=== PATIENT | female | born 2000 | race Asian ===

== ENCOUNTER 2024-11-28 14:26 | Inpatient (IN) | payer OTHER, SELFPAY ==
[2024-11-28] VITALS (10 sets, daily range): BP systolic 100–127; BP diastolic 65–81; PULSE 84–111; RESP 16–20; TEMP 36.8–37; O2SAT 95–99; BMI 31.6
--- NOTE | 2024-11-28 14:34 | ECG_ITS ---
Test Date: 2024-11-28 14:42:41 Measurements Intervals [place] Rate: 87 P: 0 NV: 0 QRS: 28 QRSD: 98 T: 47 QT: 351 QTc: 424 Interpretive Statements SINUS RHYTHM No previous ECG available for comparison Electronically Signed On 11-29-2024 06:38:05 CDT by Benjie King D.O
--- NOTE | 2024-11-28 14:50 | PC.NURSE ---
BUPROPION 150MG 90 TABLET BOTTLE. 87 TABS COUNTED. UNKNOWN AMOUNT TAKEN BECAUSE THE BOYFRIEND COMBINES HIS PILL BOTTLES WHEN NEW SCRIPT OBTAINED. BUSPIRONE 10MG 180 TABLET BOTTLE. 49 TABS COUNTED. UNKNOWN AMOUNT TAKEN DUE TO COMBINING PILL BOTTLES ESCITALOPRAM 20MG 90 TABLET BOTTLE. 111 TABS COUNTED BECAUSE BOYFRIEND COMBINES PILL BOTTLES WITH NEW SCRIPTS SO UNKNOWN AMOUNT WAS TAKEN SPOKE WITH POISON CONTROL WHO REPORTS THAT WITH THESE MEDS WE NEED SCREENING LABS +EKG DUE TO RISK OF PROLONGED QT AND WIDENED QRS. RISK OF DELAYED SEIZURES IS SIGNIFICANT SO THEY RECOMMENDED ADMISSION FOR CLOSE MONITORING. ALSO CAN HAVE INTENSIVE CARE UNIT NURSE DEPRESSION AND NAUSEA WITH VOMITING.
--- NOTE | 2024-11-28 14:51 | ED.GENADULT ---
HPI - General Adult General Chief complaint: Overdose Stated complaint: overdose History of Present Illness HPI narrative: 24-year-old female presenting to the emergency department for evaluation after an intentional overdose. Patient was not attempting to harm herself but states she had gotten into a verbal argument with her boyfriend became emotionally upset and just wanted to sleep. Patient states she was not open to sleep for over and patient continues to deny that this was an attempt for self-harm. Patient does have a history of self-harm Related Data Home Medications ?Medication ?Instructions ?Recorded ?Confirmed ?Last Taken ?Type dapagliflozin propanediol 10 mg 10 mg PO DAILY 10/04/24 10/20/24 Unknown History tablet (Farxiga) lurasidone 120 mg tablet (Latuda) 120 mg PO DAILY 10/04/24 10/20/24 Unknown History norethindrone (contraceptive) 0.35 0.35 mg PO DAILY 10/04/24 10/20/24 Unknown History mg tablet (Emzahh) venlafaxine 150 mg 150 mg PO DAILY 10/04/24 10/20/24 Unknown History capsule,extended release 24 hr (Effexor XR) Allergies Allergy/AdvReac Type Severity Reaction Status Date / Time risperidone (From Risperdal) Allergy Mild galactorrhe Verified 10/20/24 11:32 a Review of Systems Review of Systems: All systems reviewed & are unremarkable except as noted in HPI and below PMFSH Family History Family History Mother Diabetes mellitus Father Diabetes mellitus Sibling Diabetes mellitus Anxiety Depression Grandparent Diabetes mellitus Sibling Depression Anxiety Social History Social History Smoking status: Current every day smoker Alcohol intake: never Alcohol use details: 1-4/wk Substance use: never Substance use type: does not use Do You Feel Safe in your Home?: No Lack of Transportation: No Lack of Food: Never True Current Housing: I Have Housing Concerned About Future Housing: No Difficulty Paying Gas/Electric Bills: No Difficulty Paying for Meds: No Currently Unemployed: No Education: Decline to Answer Difficulty w/ Childcare or Family Care: No Spiritual care concerns: No Agree to blood products: Yes Exam Narrative: APPEARANCE: Well appearing, no pain, no distress, well-nourished. HEAD: normocephalic, atraumatic. EYES: PERRLA/EOMI, conjunctivae clear. NOSE: Normal no drainage EARS:TMS clear with good light reflex. THROAT: Pharynx clear, no exudate. NECK: Supple. No adenopathy, no masses. RESPIRATORY: Airway patent, respirations nonlabored. Clear to auscultation bilaterally, no rales, rhonchi, wheezing. CARDIOVASCULAR: Regular rate and rhythm without murmurs rubs or gallops. ABDOMINAL: Soft, nontender, nondistended, normal bowel sounds MUSCULOSKELETAL: Moves all extremities. Strength/ROM intact, No edema, No calf tenderness. NEURO: Alert. Cranial nerves II through XII intact. Good gait. Good coordination SKIN: Warm, dry. Normal Color PSYCHIATRIC: Flat affect Course Vital Signs Vital signs: Vital Signs Temperature 98.6 F 11/28/24 14:28 Pulse Rate 87 11/28/24 14:28 Respiratory Rate 16 11/28/24 14:28 Blood Pressure 118/80 11/28/24 14:28 Pulse Oximetry 97 11/28/24 14:28 Oxygen Delivery Room Air 11/28/24 14:28 Temperature 98.6 F 11/28/24 14:28 Pulse Rate 84 11/28/24 16:27 Respiratory Rate 16 11/28/24 16:27 Blood Pressure 119/81 11/28/24 16:27 Pulse Oximetry 98 11/28/24 16:27 Oxygen Delivery Room Air 11/28/24 14:50 Medical Decision Making [facility] Narrative Medical decision making narrative: 24 old female present to the emergency department for evaluation for intentional overdose. Patient states the intent was to sleep not suicide. Patient does have a history of self-harm. Patient is afebrile with no leukocytosis hemoglobin of 13.9. Patient has a INR of 1.1. No acute abnormalities on the CMP UA was negative for infection. Patient had negative since lytes heated med if an and alcohol. Patient did test positive for cannabinoids. Patient was negative for COVID. EKG showed normal sinus rhythm case was discussed with the training and development head and training and development head was not consulted. Patient will be admitted to the ICU as an IMU overflow. Patient was updated on results of the workup and need for admission. Patient overdosed on bupropion and poison Control recommended admission for 24 hours for concern for seizures. Differential Diagnosis Differential Diagnosis: Intentional overdose, suicidal ideation, self-harm, seizure, kidney injury, liver injury Vital Signs Vital Signs: Vital Signs Temperature 98.6 F 11/28/24 14:28 Pulse Rate 87 11/28/24 14:28 Respiratory Rate 16 11/28/24 14:28 Blood Pressure 118/80 11/28/24 14:28 Pulse Oximetry 97 11/28/24 14:28 Oxygen Delivery Room Air 11/28/24 14:28 Temperature 98.6 F 11/28/24 14:28 Pulse Rate 84 11/28/24 16:27 Respiratory Rate 16 11/28/24 16:27 Blood Pressure 119/81 11/28/24 16:27 Pulse Oximetry 98 11/28/24 16:27 Oxygen Delivery Room Air 11/28/24 14:50 Lab Data Lab results reviewed: Yes I reviewed the patient's lab results. 11/28/24 15:30 11/28/24 15:30 Labs: Lab Results 11/28/24 11/28/24 Range/Units 15:30 15:48 WBC 6.3 (4.5-10.0) K/mm3 RBC 4.82 (4.2-5.4) M/mm3 Hgb 13.9 (12.0-15.0) g/dL Hct 42.8 (37.0-47.0) % MCV 88.8 (80-100) fl MCH 28.8 (26-34) pg MCHC 32.5 (32-36) g/dl RDW 12.6 (11.5-14.5) % Plt Count 315 (150-375) k/mm3 MPV 8.9 (7.4-10.4) fl Immature Gran % (Auto) 0.3 (0-0.5) % Neut % (Auto) 62.5 (45.5-73.1) % Lymph % (Auto) 29.8 (18.3-44.2) % [place] % (Auto) 5.7 (2.6-8.5) % Eos % (Auto) 1.4 (0-4.4) % Baso % (Auto) 0.3 (0.2-1.2) % Lymph # (Auto) 1.89 (0.9-3.2) K/mm3 [place] # (Auto) 0.4 (0.1-0.6) K/mm3 Eos # (Auto) 0.1 (0-0.3) K/mm3 Baso # (Auto) 0.0 (0.0-0.1) K/mm3 Abs Immat Gran (auto) 0.02 (0.00-0.031) K/mm3 Absolute Neuts (auto) 4.0 (1.3-6.7) K/mm3 Absolute Nucleated RBC 0.000 (0.0-0.012) K/mm3 Nucleated RBC % 0.0 (0.0-0.2) % PT 14.0 (11.1-14.7) Seconds INR 1.1 APTT 31.7 (22.3-36.8) Seconds Sodium 138 (137-145) mmol/L Potassium 4.0 (3.4-5.0) mmol/L Chloride 102 (98-107) mmol/L Carbon Dioxide 23 (22-30) mmol/L Anion Gap 13 H (4-12) mmol/L BUN 9 (7-17) mg/dL Creatinine 0.68 L (0.7-1.0) mg/dL Estim Creat Clear Calc Not Reportable Estimated GFR > 60 (59 - ) Glucose 145 H (65-110) mg/dL Calcium 9.3 (8.4-10.2) mg/dL Total Bilirubin 0.3 (0.2-1.3) mg/dL AST 26 (14-36) U/L ALT 19 (6-35) U/L Alkaline Phosphatase 53 (38-126) U/L Total Protein 8.2 (6.3-8.2) g/dL Albumin 4.8 (3.5-5.1) g/dL TSH 1.410 (0.465-4.680) uIU/mL POC Urine HCG, Qual Negative (Negative) Salicylates < 1.0 L (2-20) mg/dL Acetaminophen < 10 L (10-30) ug/mL Ethyl Alcohol < 10 (<10) mg/dL SARS-CoV-2 RNA (RT-PCR) Negative (Negative) Discharge Plan Discharge Clinical Impression: Overdose Patient Disposition: Still a Patient Condition: Serious
[2024-11-28 15:36] LABS: Hematocrit 42.8 % (37.0-47.0); Hemoglobin 13.9 g/dL (12.0-15.0); Immature Granulocyte Percent A 0.3 % (0-0.5); Lymphocytes Absolute Auto 1.89 K/mm3 (0.9-3.2); Mean Corpuscular HGB Conc 32.5 g/dl (32-36); Mean Corpuscular Hemoglobin 28.8 pg (26-34); Mean Corpuscular Volume 88.8 fl (80-100); Nucleated Red Blood Cells Absolute Auto 0.000 K/mm3 (0.0-0.012); Nucleated Red Blood Cells Perc 0.0 % (0.0-0.2); Platelet Count Result 315 k/mm3 (150-375); Red Blood Count 4.82 M/mm3 (4.2-5.4); White Blood Count 6.3 K/mm3 (4.5-10.0)
[2024-11-28 15:46] LABS: INR 1.1; Prothrombin Time 14.0 Seconds (11.1-14.7)
[2024-11-28 15:47] LABS: Alanine Aminotransferase 19 U/L (6-35); Albumin Level 4.8 g/dL (3.5-5.1); Alkaline Phosphatase 53 U/L (38-126); Anion Gap 13 mmol/L (4-12); Aspartate Amino Transferase 26 U/L (14-36); Bilirubin,Total 0.3 mg/dL (0.2-1.3); Blood Urea Nitrogen 9 mg/dL (7-17); Calcium 9.3 mg/dL (8.4-10.2); Carbon Dioxide 23 mmol/L (22-30); Chloride 102 mmol/L (98-107); Estimated Glomerular Filt Rate > 60; Glucose 145 mg/dL (65-110); Partial Thromboplastin Time 31.7 Seconds (22.3-36.8); Potassium 4.0 mmol/L (3.4-5.0); Sodium 138 mmol/L (137-145); Total Protein 8.2 g/dL (6.3-8.2)
[2024-11-28 15:48] LABS: Acetaminophen < 10 ug/mL (10-30); Salicylate < 1.0 mg/dL (2-20)
--- NOTE | 2024-11-28 15:58 | P.HP_ITS ---
H&P: HPI History of Present Illness Date/Time: 11/28/24 15:58 Chief Complaint: Overdose Narrative: 24-year-old female presents the hospital with an overdose. Patient denies that this is a suicidal attempt. She states she was just trying to get some sleep. Patient states that she took Wellbutrin, buspirone and citalopram. She states that they were her boyfriend's medications. She does not know how many of each she took. Patient states that she told her boyfriend about taking the pills. she had call 911. Patient provides very little other information about the incident. Denies nausea vomiting shortness of breath. CBC and CMP are within normal limits glucose is 145, salicylates, acetaminophen, and ethanol level negative. EKG shows sinus rhythm with second-degree AV block Mobitz type 2. UA positive for cannabinoids. Patient will go to the ICU as IMU overflow for intentional overdose. Review of Systems Review of Systems: 12 systems were reviewed and are negativ e except for as per HPI. [facility] Family History Family History Mother Diabetes mellitus Father Diabetes mellitus Sibling Diabetes mellitus Anxiety Depression Grandparent Diabetes mellitus Sibling Depression Anxiety Social History Social History Years smoked: 4 Smoking status: Current every day smoker Tobacco type: e-cigarettes/vaping Additional smoking assessment comments: Patient reports previous short term cigarette use. Alcohol intake: never Alcohol use details: 1-4/wk Substance use: never Substance use type: does not use Do You Feel Safe in your Home?: No Lack of Transportation: No Lack of Food: Never True Current Housing: I Have Housing Concerned About Future Housing: No Difficulty Paying Gas/Electric Bills: No Difficulty Paying for Meds: No Currently Unemployed: No Education: Decline to Answer Difficulty w/ Childcare or Family Care: No Spiritual care concerns: No Agree to blood products: Yes Meds Home Medications and Allergies Home Medications ?Medication ?Instructions ?Recorded ?Confirmed ?Type blood-glucose sensor (Dexcom G7 #9 ea 10/04/24 5 Rx Sensor device) dapagliflozin propanediol 10 mg 10 mg PO DAILY 5 11/28/24 History tablet (Farxiga) dulaglutide 1.5 mg/0.5 mL 1.5 mg (0.5 mL) subcut WEEKL Y #6 mL 10/04/24 11/28/24 Rx subcutaneous pen injector (Trulicity) lurasidone 120 mg tablet (Latuda) 120 mg PO DAILY 11/2111/28/24 History metformin 750 mg tablet,extended 750 mg PO DAILY #180 tabs 10/04/24 11/28/24 Rx release 24 hr norethindrone (contraceptive) 0.35 0.35 mg PO DAILY 11/28/24 History mg tablet (Emzahh) venlafaxine 150 mg 150 mg PO DAILY 10/04/2404/23 History capsule,extended release 24 hr (Effexor XR) insulin glargine 100 unit/mL (3 40 unit (0.4 mL) subcu t QPM #36 mL 10/20/24 11/28/24 Rx mL) subcutaneous pen (Lantus Solostar U-100 Insulin) pen needle, diabetic 32 gauge x #400 ea 10/20/2411/28 Rx 5/32 (Eileen 2nd Gen Pen Needle) insulin aspart U-100 100 unit/mL 8 unit subcut TIDWMEA L 11/28/24 11/28/24 History (3 mL) subcutaneous pen (Novolog FlexPen U-100 Insulin aspart) Allergies Allergy/AdvReac Type Severity Reaction Status Date / Time risperidone (From Risperdal) Allergy Mild galactorrhe Verified 10/20/24 11:32 a Vital Signs Vital Signs - 24 hr 11/28/24 14:28 11/28/24 14:50 11/28/24 14:50 Temperature 98.6 F Pulse Rate 87 Respiratory Rate 16 16 Blood Pressure 118/80 Pulse Oximetry 97 99 Oxygen Delivery Room Air Room Air Exam Narrative: General: well appearing, appears stated age. HEENT: normocephalic, atraumatic. Mucous membranes moist. EOMI, PERRLA, bilateral sclera anicteric, no conjunctival injection. Neck supple without JVD, lymphadenopathy, or bruit. Respiratory: clear to ascultation bilaterally. No rales/rhonic/wheezes. Cardiovascular: Regular rate and rhythm, normal S1-S2 upon ascultation. No murmurs, rubs, or clicks. PMI is nondisplaced, capillary refill less than 3 second. Abdomen: Soft, round, no pulsatile masses, nondistended and nontender. No rebound, no guarding. No CVA tenderness, no hepatosplenomegaly. Bowel sounds present to all four quadrants. No high pitch or tinkling sounds, resonant to percussion. Extremities: No cyanosis, clubbing, or edema present. Pulses are palpable 2/2. Active ROM to all four extremities. Neuro: Alert and orientated x 4. PERRLA. Cranial nerves 2-12 intact without focal deficit. Skin: Warm, dry, and intact, without rash, erythema, or lesion. Psych: Flat avoiding eye contact H&P: Results Labs Labs: Short CBC 11/28/24 Range/Units 15:30 WBC 6.3 (4.5-10.0) K/mm3 Hgb 13.9 (12.0-15.0) g/dL Hct 42.8 (37.0-47.0) % Plt Count 315 (150-375) k/mm3 BMP 11/28/24 15:30 Sodium 138 Potassium 4.0 Chloride 102 Carbon Dioxide 23 BUN 9 Creatinine 0.68 L Glucose 145 H Calcium 9.3 Liver Function 11/28/24 Range/Units 15:30 Total Bilirubin 0.3 (0.2-1.3) mg/dL AST 26 (14-36) U/L ALT 19 (6-35) U/L Alkaline Phosphatase 53 (38-126) U/L Albumin 4.8 (3.5-5.1) g/dL Assessment and Plan Assessment and plan (1) Overdose: Code(s): T50.901A - Poisoning by unspecified drugs, medicaments and biological substances, accidental (unintentional), initial encounter Status: Acute Assessment and Plan: Wellbutrin, buspirone and citalopram Poison control recommendations Monitor for seizures, serotonin syndrome and torsade Suicide precautions Telemetry monitoring (2) Mobitz type 2 second degree atrioventricular block: Code(s): I44.1 - Atrioventricular block, second degree Status: Acute Assessment and Plan: Side effects of Wellbutrin overdose EKG at 10:00 p.m. (3) Schizoaffective disorder: Code(s): F25.9 - Schizoaffective disorder, unspecified Status: Acute Assessment and Plan: Hold Home medications of Latuda and Effexor Psychiatry for medication recommendations (4) Type 2 diabetes mellitus without complications: Code(s): E11.9 - Type 2 diabetes mellitus without complications Status: Acute Assessment and Plan: Hold home oral diabetic medications Home Lantus and sliding scale Accu-Cheks a.c. HS (5) Vomiting: Code(s): R11.10 - Vomiting, unspecified Status: Acute Assessment and Plan: Tigan as it does not increase the QTC Quality VTE Prophylaxis VTE prophylaxis: mechanical ordered Hospitalist MIPS Advance Care Plan I have confirmed that the patient's Advanced Care Plan is present, code status is documented, or surrogate decision maker is listed in patient medical record.: Yes Medication Reconciliation I have utilized all available resources to obtain, update and review the patients current medications (includes all prescriptions, OTC, herbals, cannabis, and nutritional supplements).: Yes
[2024-11-28 16:13] LABS: Add Urine Microscopic? NO; Appearance Urine Clear (Clear); Glucose Urine UA 3+ mg/dL (Negative); Leukocyte Esterase Ur Negative LEU/UL (Negative); Nitrate Urine Negative (Negative); Specific Grav Ur 1.014 (1.001-1.035)
[2024-11-28 16:18] LABS: Thyroid Stimulating Hormone 1.410 uIU/mL (0.465-4.680)
[2024-11-28 16:26] LABS: BEDSIDEPREGUCG Negative (Negative)
[2024-11-28 16:35] LABS: SARS-CoV-2 RNA PCR Negative (Negative)
[2024-11-28 16:48] LABS: Cannabinoid Screen Urine Positive (Negative)
--- NOTE | 2024-11-28 17:11 | ADMGEN ---
This patient, Stanley Lantigua, was admitted to Intensive Care Unit-4. Patient/family oriented to hospital policies and general routines including ID bracelet, bed and alarms, visiting hours, pain management, procedures, bathroom and other care routines, personal items, smoking policy, room service/diet, and visiting hours. Information on how to activate the Rapid Response Team has been discussed. Patient/Family are encouraged to report perceived risks to care and to ask questions if they do not understand what they are told or what they should do.
[2024-11-28] MEDS: SODIUM CHLORIDE 0.9% IV 1,000 ML 100 ML IV CONT (20:32)
[2024-11-28] MEDS: TRIMETHOBENZAMIDE HCL 200 MG/2 ML VIAL IM (21:30)
--- NOTE | 2024-11-28 22:00 | ECG_ITS ---
Test Date: 2024-11-28 22:15:05 Measurements Intervals [place] Rate: 108 P: 46 MI: 137 QRS: 28 QRSD: 91 T: 43 QT: 342 QTc: 460 Interpretive Statements SINUS TACHYCARDIA Electronically Signed On 11-29-2024 07:31:50 CDT by Benjie King D.O
--- NOTE | 2024-11-28 22:24 | PC.NURSE ---
Spoke with poison control. No further recommendations at this time, and no further EKGs required unless pt becomes symptomatic. Follow up with morning labs. Pt had been nauseous and vomiting earlier this shift, after medication remains slightly nauseous. Pt resting with no other complaints at this time.
[2024-11-28] MEDS: diazePAM INJ (*CRX) 10 MG/2 ML SYRINGE 5 MG IV PUSH (23:26)
[2024-11-29] VITALS (11 sets, daily range): BP systolic 105–121; BP diastolic 62–73; PULSE 93–124; RESP 16–20; TEMP 36.7–37.2; O2SAT 97–99
[2024-11-29] MEDS: levETIRAcetam 1000MG/NACL100ML 1,000 MG/100 ML BAG 400 MG IVPB
[2024-11-29 00:01] LABS: Anion Gap 27 mmol/L (4-12); Blood Urea Nitrogen 7 mg/dL (7-17); Calcium 9.2 mg/dL (8.4-10.2); Carbon Dioxide 10 mmol/L (22-30); Chloride 104 mmol/L (98-107); Estimated Glomerular Filt Rate > 60; Glucose 175 mg/dL (65-110); Magnesium 2.1 mg/dL (1.6-2.3); Potassium 4.1 mmol/L (3.4-5.0); Sodium 141 mmol/L (137-145)
[2024-11-29 04:10] LABS: Hematocrit 39.9 % (37.0-47.0); Hemoglobin 13.2 g/dL (12.0-15.0); Immature Granulocyte Percent A 0.3 % (0-0.5); Lymphocytes Absolute Auto 1.09 K/mm3 (0.9-3.2); Mean Corpuscular HGB Conc 33.1 g/dl (32-36); Mean Corpuscular Hemoglobin 29.6 pg (26-34); Mean Corpuscular Volume 89.5 fl (80-100); Nucleated Red Blood Cells Absolute Auto 0.000 K/mm3 (0.0-0.012); Nucleated Red Blood Cells Perc 0.0 % (0.0-0.2); Platelet Count Result 320 k/mm3 (150-375); Red Blood Count 4.46 M/mm3 (4.2-5.4); White Blood Count 10.2 K/mm3 (4.5-10.0)
[2024-11-29 04:31] LABS: Anion Gap 13 mmol/L (4-12); Blood Urea Nitrogen 7 mg/dL (7-17); Calcium 8.9 mg/dL (8.4-10.2); Carbon Dioxide 18 mmol/L (22-30); Chloride 106 mmol/L (98-107); Estimated Glomerular Filt Rate > 60; Glucose 150 mg/dL (65-110); Potassium 3.9 mmol/L (3.4-5.0); Sodium 137 mmol/L (137-145)
[2024-11-29] MEDS: SODIUM CHLORIDE 0.9% IV 1,000 ML 100 ML IV CONT (05:49)
--- NOTE | 2024-11-29 15:20 | PHAR ---
Addendum entered by Tevin Herrera.Ph. 11/29/24 15:23: HAS BEEN VERIFIED BY PHARMACY Original Note: PT'S HOME MED [place] [facility] (NORETHINDRONE ACETATE/ETHINYL ESTADIOL ORAL CONTRACEPTIVE TABLETS
--- NOTE | 2024-11-29 16:06 | PM.IMPN ---
Progress Note: A&P Assessment and Plan (1) Overdose: Code(s): T50.901A - Poisoning by unspecified drugs, medicaments and biological substances, accidental (unintentional), initial encounter Status: Acute Assessment and Plan: Patient overdosed on her boyfriends Wellbutrin, buspirone and citalopram that appears to be associated with an argument. Poison control called and appreciate their recommendations. She has a seizure last night related to the WB. Urine preg test negative. UDS positive for cannabinoids. Monitor for seizures, serotonin syndrome and torsade Suicide precautions. Seizure precautions. Telemetry monitoring. Crisis to see. Poison control signed off and she is clear for trasnfer. (2) Schizoaffective disorder: Code(s): F25.9 - Schizoaffective disorder, unspecified Status: Acute Assessment and Plan: Patient has schizoaffective disorder and is on Latuda and Effexor. There medications were held. Continue to hold for now. Psychiatry for medication recommendations (3) Type 2 diabetes mellitus without complications: Code(s): E11.9 - Type 2 diabetes mellitus without complications Status: Acute Assessment and Plan: The patient's blood glucose was reviewed on 11/29 Glucose remains well controlled. Continue AccuCheks covering with sliding scale. Hypoglycemia protocol available as needed. Continue to monitor. Diab diet (4) Vomiting: Code(s): R11.10 - Vomiting, unspecified Status: Acute Assessment and Plan: Related to above. Symptoms better. Monitor (5) Mobitz type 2 second degree atrioventricular block: Code(s): I44.1 - Atrioventricular block, second degree Status: Acute Assessment and Plan: Preliminary reading by provide felt patient had 2nd degree AVB. EKG reviewed and showing sinus rhythm but no AVB Patient does not have any documented events of AVB Plan DVT Prophylaxis - SCDs Code status - full Subjective Date/time seen: 11/29/24 16:06 Interval history: 24yo female with schizoaffective disorder and hx of suicide attempts who presents the hospital after an intentional overdose. Feels weak. No Cp or SOB. No cough. She feels mildly confused. N/V yesterday but this has resolved. Denies this was a suicide attempt. No suicidal or homicidal ideation. She just 'wanted to go to sleep' and wanted to 'freeze the moment'. Occurred during an argument with boyfriend. He is not physically or emotionally abusive. She did have a seizure last night. Hx of suicde attempt when she was 16yo. She was most recently hospitalized at psychiatric facility 2 years ago for cutting. She does not cut much anymore. Exam Narrative: AF 98.6 119/67 98 18 99% ra Gen - NARD Chest - CTA bilaterally, nml RR CV - RRR S1/S2. Tele showing sinus tachycardia. Abd - Soft, NT/ND, Positive BS Ext - No pedal edema Neuro - Alert and oriented x4. Nonfocal exam. Psych - Nml mood and affect. good eye contacted. well groomed. appropriately Skin - Warm and dry Objective Data Vital Signs Vital Signs: Vital Signs - 24 hr 11/28/24 16:16 11/28/24 16:27 11/28/24 18:00 Temperature Pulse Rate 90 84 103 H Respiratory Rate 20 16 Blood Pressure 100/65 119/81 Pulse Oximetry 99 98 Oxygen Delivery Fraction of Inspired Oxygen 11/28/24 18:00 11/28/24 20:00 11/28/24 20:00 Temperature Pulse Rate 90 108 H Respiratory Rate Blood Pressure Pulse Oximetry Oxygen Delivery Room Air Fraction of Inspired Oxygen 11/28/24 20:00 11/28/24 20:24 11/28/24 22:00 Temperature 98.2 F Pulse Rate 111 H 111 H 108 H Respiratory Rate 18 20 Blood Pressure 127/75 Pulse Oximetry 98 95 Oxygen Delivery Room Air Fraction of Inspired Oxygen 2 11/29/24 00:00 11/29/24 00:00 11/29/24 00:00 Temperature 98.2 F Pulse Rate 124 H 124 H Respiratory Rate 18 Blood Pressure 106/62 Pulse Oximetry 97 Oxygen Delivery Room Air Fraction of Inspired Oxygen 11/29/24 02:00 11/29/24 04:00 11/29/24 04:00 Temperature Pulse Rate 118 H 120 H Respiratory Rate Blood Pressure Pulse Oximetry Oxygen Delivery Room Air Fraction of Inspired Oxygen 11/29/24 04:00 11/29/24 06:00 11/29/24 07:36 Temperature 98.0 F 98.6 F Pulse Rate 120 H 112 H 110 H Respiratory Rate 20 18 Blood Pressure 106/62 105/65 Pulse Oximetry 97 99 Oxygen Delivery Fraction of Inspired Oxygen 11/29/24 08:00 11/29/24 08:00 11/29/24 10:00 Temperature Pulse Rate 112 H 101 H Respiratory Rate Blood Pressure Pulse Oximetry Oxygen Delivery Room Air Fraction of Inspired Oxygen 11/29/24 12:00 11/29/24 12:00 11/29/24 12:00 Temperature Pulse Rate 102 H 102 H Respiratory Rate 18 Blood Pressure 119/67 Pulse Oximetry 99 Oxygen Delivery Room Air Fraction of Inspired Oxygen 11/29/24 14:00 Temperature Pulse Rate 98 Respiratory Rate Blood Pressure Pulse Oximetry Oxygen Delivery Fraction of Inspired Oxygen Intake/Output Intake/Output: Intake & Output 11/26/24 11/27/24 11/28/24 11/29/24 23:59 23:59 23:59 23:59 Intake Total 928.3 Balance 928.3 Meds/Results Medications: Active Medications Generic Name Dose Route Start Last Admin Trade Name Freq PRN Reason Stop Dose Admin Acetaminophen 650 mg 11/28/24 18:12 Acetaminophen 325 Mg Tablet PO Q4H PRN Mild Pain (1-3) or Fever Dextrose 12.5 gm 11/28/24 18:52 Dextrose 50% 25 Gm/50 Ml Syringe IV PUSH PRN PRN Hypoglycemia Protocol Diazepam 5 mg 11/28/24 21:48 11/28/24 23:26 Diazepam Inj (*Crx) 10 Mg/2 Ml Syringe IV PUSH 5 mg Q6HR PRN Administration Seizure Glucagon 1 mg 11/28/24 18:52 Glucagon For Inj 1 Mg Vial IM PRN PRN Hypoglycemia Protocol Glucose 15 gm 11/28/24 18:52 Glucose Oral Gel 15 Gm Of Glucse In 37.5 Gm Tube PO PRN PRN Hypoglycemia Protocol Sodium Chloride 1,000 mls @ 100 mls/hr 11/28/24 18:55 11/29/24 05:49 Normal Saline Iv IV CONT 100 mls/hr .Q10H LEE Administration Dextrose 1,000 mls @ 100 mls/hr 11/28/24 18:52 Dextrose 5% 1,000 Ml IVPB PRN PRN Hypoglycemia Protocol Insulin Aspart 4 - 8 units 11/29/24 08:00 11/29/24 12:22 Insulin Aspart (*Bkc) 100 Units/Ml SUB-Q Not Given TIDWM LEE Protocol Insulin Glargine 40 units 11/28/24 18:55 11/28/24 22:44 Insulin Glargine (*Bkc) 100 Units/Ml SUB-Q Not Given On Hold: 11/28/24 22:40 QPM LEE Non-Formulary ( 2 each 11/29/24 15:35 Norethindrone PO 11/30/24 09:01 Acetate-Ethinyl DAILY LEE Estradiol/Ferrous Fumarate 1.5 Mg-30 . ..) Non-Formulary ( 1 each 12/01/24 09:00 Norethindrone PO 12/31/24 08:59 Acetate-Ethinyl DAILY LEE Estradiol/Ferrous Fumarate 1.5 Mg-30 . ..) Trimethobenzamide HCl 200 mg 11/28/24 21:01 11/28/24 21:30 Trimethobenzamide Hcl 200 Mg/2 Ml Vial IM 200 mg Q6H PRN Administration Nausea And Vomiting Labs Labs: Laboratory Results - last 24 hr 11/28/24 11/28/24 11/28/24 15:30 15:48 16:07 WBC RBC Hgb Hct MCV MCH MCHC RDW Plt Count MPV Immature Gran % (Auto) Neut % (Auto) Lymph % (Auto) [place] % (Auto) Eos % (Auto) Baso % (Auto) Lymph # (Auto) [place] # (Auto) Eos # (Auto) Baso # (Auto) Abs Immat Gran (auto) Absolute Neuts (auto) Absolute Nucleated RBC Nucleated RBC % Sodium Potassium Chloride Carbon Dioxide Anion Gap BUN Creatinine Estim Creat Clear Calc Estimated GFR Glucose POC Capillary Glucose Calcium Phosphorus Magnesium TSH 1.410 Urine Color Yellow Urine Appearance Clear Urine pH 6.5 Ur Specific [place] 1.014 Urine Protein Negative Urine Glucose (UA) 3+ H Urine Ketones 1+ H Ur Blood (Man) Negative Urine Nitrate Negative Urine Bilirubin Negative Urine Urobilinogen 0.2 Leukocyte Esterase Rfl Negative POC Urine HCG, Qual Negative Urine Opiates Screen Negative Urine Methadone Screen Negative Ur Barbiturates Screen Negative Ur Phencyclidine Scrn Negative Ur Amphetamine Screen Negative U Benzodiazepines Scrn Negative Urine Cocaine Screen Negative U Cannabinoids Screen Positive A SARS-CoV-2 RNA (RT-PCR) Negative 11/28/24 11/28/24 11/28/24 19:40 22:40 23:38 WBC RBC Hgb Hct MCV MCH MCHC RDW Plt Count MPV Immature Gran % (Auto) Neut % (Auto) Lymph % (Auto) [place] % (Auto) Eos % (Auto) Baso % (Auto) Lymph # (Auto) [place] # (Auto) Eos # (Auto) Baso # (Auto) Abs Immat Gran (auto) Absolute Neuts (auto) Absolute Nucleated RBC Nucleated RBC % Sodium 141 Potassium 4.1 Chloride 104 Carbon Dioxide 10 L Anion Gap 27 H BUN 7 Creatinine 0.67 L Estim Creat Clear Calc Not Reportable Estimated GFR > 60 Glucose 175 H POC Capillary Glucose 118 H 129 H Calcium 9.2 Phosphorus 4.3 Magnesium 2.1 TSH Urine Color Urine Appearance Urine pH Ur Specific [place] Urine Protein Urine Glucose (UA) Urine Ketones Ur Blood (Man) Urine Nitrate Urine Bilirubin Urine Urobilinogen Leukocyte Esterase Rfl POC Urine HCG, Qual Urine Opiates Screen Urine Methadone Screen Ur Barbiturates Screen Ur Phencyclidine Scrn Ur Amphetamine Screen U Benzodiazepines Scrn Urine Cocaine Screen U Cannabinoids Screen SARS-CoV-2 RNA (RT-PCR) 11/29/24 11/29/24 11/29/24 03:57 07:11 12:01 WBC 10.2 H RBC 4.46 Hgb 13.2 Hct 39.9 MCV 89.5 MCH 29.6 MCHC 33.1 RDW 12.7 Plt Count 320 MPV 8.9 Immature Gran % (Auto) 0.3 Neut % (Auto) 83.6 H Lymph % (Auto) 10.7 L [place] % (Auto) 5.2 Eos % (Auto) 0.0 Baso % (Auto) 0.2 Lymph # (Auto) 1.09 [place] # (Auto) 0.5 Eos # (Auto) 0.0 Baso # (Auto) 0.0 Abs Immat Gran (auto) 0.03 Absolute Neuts (auto) 8.5 H Absolute Nucleated RBC 0.000 Nucleated RBC % 0.0 Sodium 137 Potassium 3.9 Chloride 106 Carbon Dioxide 18 L Anion Gap 13 H BUN 7 Creatinine 0.63 L Estim Creat Clear Calc Not Reportable Estimated GFR > 60 Glucose 150 H POC Capillary Glucose 121 H 112 H Calcium 8.9 Phosphorus Magnesium TSH Urine Color Urine Appearance Urine pH Ur Specific [place] Urine Protein Urine Glucose (UA) Urine Ketones Ur Blood (Man) Urine Nitrate Urine Bilirubin Urine Urobilinogen Leukocyte Esterase Rfl POC Urine HCG, Qual Urine Opiates Screen Urine Methadone Screen Ur Barbiturates Screen Ur Phencyclidine Scrn Ur Amphetamine Screen U Benzodiazepines Scrn Urine Cocaine Screen U Cannabinoids Screen SARS-CoV-2 RNA (RT-PCR)
--- NOTE | 2024-11-29 17:00 | PC.NURSE ---
Crisis here to evaluate patient. Pt did not meet criteria for involuntary admission nor did she want to voluntarily admit to inpatient. Crisis recommending safety contract at this time despite patient's significant other voicing concerns over access to medications and being at home all day. Dr. Craven notified of crisis recommendation for safety plan. He does not feel it is appropriate to discharge patient at this time due to her seizure over night despite poison control signing off and having no further recommendations or concerns. Psychiatry notified of consult earlier today for medication adjustment/initiation recommendations, they have not arrived to see patient yet at this time.
[2024-11-29] MEDS: FERROUS FUMARATE PO (17:29)
[2024-11-29] MEDS: [UNRECOGNIZED DRUG - OTHER] PO (17:29)
[2024-11-29] MEDS: NORETHINDRONE ACETATE PO (17:29)
[2024-11-29] MEDS: ETHINYL ESTRADIOL PO (17:29)
[2024-11-30] VITALS: BP 96/53; PULSE 101; RESP 16; TEMP 37.2; O2SAT 98
[2024-11-30 03:54] VITALS: BP 93/58; PULSE 84; RESP 16; TEMP 36.6; O2SAT 98
[2024-11-30 03:56] LABS: Anion Gap 10 mmol/L (4-12); Blood Urea Nitrogen 9 mg/dL (7-17); Calcium 8.5 mg/dL (8.4-10.2); Carbon Dioxide 21 mmol/L (22-30); Chloride 107 mmol/L (98-107); Estimated Glomerular Filt Rate > 60; Glucose 113 mg/dL (65-110); Potassium 3.5 mmol/L (3.4-5.0); Sodium 138 mmol/L (137-145)
[2024-11-30 08:18] VITALS: BP 109/61; PULSE 90; RESP 16; TEMP 36.8; O2SAT 97
[2024-11-30] MEDS: FERROUS FUMARATE PO (08:39)
[2024-11-30] MEDS: NORETHINDRONE ACETATE PO (08:39)
[2024-11-30] MEDS: ETHINYL ESTRADIOL PO (08:39)
[2024-11-30] MEDS: [UNRECOGNIZED DRUG - OTHER] PO (08:39)
[2024-11-30] MEDS: POTASSIUM BICARBONATE 25 MEQ TABEF 50 MEQ PO (09:24)
--- NOTE | 2024-11-30 11:18 | WPDCNPSYCH ---
Assessment and Plan Assessment and plan (1) Mood disorder: Code(s): F39 - Unspecified mood [affective] disorder Status: Acute Assessment and Plan: History of schizoaffective and bipolar diagnosis, difficult to discern accurately without prior records and complexity given apparent borderline personality traits. (2) Borderline personality disorder: Code(s): F60.3 - Borderline personality disorder Status: Acute (3) Anxiety: Code(s): F41.9 - Anxiety disorder, unspecified Status: Acute Plan Patient admitted currently to ICU following overdose on unknown amount of medication. Patient reportedly took 3 tablets of what is assumed to be buspar, wellbutrin, and citalopram- although unknown doses. She adamently denies suicide attempt or intent to harm herself, no evidence to verify otherwise. No current suicidal ideation or safety risks present. She is connect with outpatient services including medication management through [facility] and online therapy. Half life of Wellbutrin XL is around 21 hours, citalopram about 35 hours, buspar about 3 hours. Patient is about 48 hours post overdose. Recommendations: -No imminent risk to hold patient involuntary for inpatient psychiatric admission, may discharge once medically cleared from psychiatric standpoint. -Decrease lurasidone to 40mg daily, may resume at discharge once medically cleared. Continue to hold venlafaxine until follow up with outpatient psychiatric provider. -Follow up with outpatient psych provider and therapist ELROY following discharge. Educated she may utilize walk in clinic at [facility] in the [facility] as needed. -Recommend ECG prior to D/C to monitor qtc, last qtc 11/28 460. Please do not hesitate to contact psychiatry with any questions or concerns. HPI Data of Consult Date/Time: 11/30/24 11:18 Requesting Physician: Getachew Craven MD Primary Care Provider: PHYSICIAN NOT ON STAFF Consult Narrative Narrative: Stanley Lantigua is a 24 year old female with a reported psychiatric history of schizoaffective disorder, bipolar 2 disorder, borderline personality disorder. She was admitted on 11/28/2024 following incident where she reportedly took a large quantity (although unknown amount) of her boyfriend's medication, which included bupropion, buspirone, citalopram. Reportedly, patient and her boyfriend got into an argument which led her to take the medication. However, she consistently has denied this being an intentional suicide attempt or intent to harm herself, reporting she just wanted to get some sleep following the argument. She currently follows with a psychiatrist through [facility] and is prescribed lurasidone 120mg daily and venlafaxine 150mg daily. Patient is seen at bedside today for evaluation. She is calm and cooperative throughout interview. Stanley has been living with her current boyfriend for the past two years after moving here from [place] to be with him. Reports they have been arguing more recently, which escalated the day of admission and he subsequently left the house with his friends and told her to pack her things. This triggered a heightened emotional response from Stanley and she admits to taking his medication (she recalls taking about three tablets of each medication), however continues to deny this was a suicide attempt or an attempt to harm herself, as she was hopeful it would help her anxiety and heightened emotions and she could go to sleep. Stanley does have a history of self harming by cutting, however has not cut since Apr of this year. She has had one suicide attempt in the past by OD about three years ago. She has a complex psychiatric diagnostic history which include bipolar 2 disorder, schizoaffective, and borderline personality disorder. Schizoaffective disorder was diagnosed several years ago by psychiatrist in [place], which her most recent psychiatrist believed her primary symptoms were related to the borderline personality disorder. She reports having strong emotions and reactions before processing her emotional state, recognizes she can be impulsive at times. Describes hallucinations as whisper sounds, sometimes echos in her head of what others say to her. Patient is connected with a therapist (Dar[facility] at [facility]) who she sees every other week. She was previously seeing LUSI Madden at [facility], however she has left the practice and has an upcoming apt later this month with her new provider. She is currently denying suicidal or homicidal ideation, denies self harming urges. No plan or intent present to harm self. Review of Systems Psychiatric: Psychiatric: Reports as per [facility] Family History Family History Mother Diabetes mellitus Father Diabetes mellitus Sibling Diabetes mellitus Anxiety Depression Grandparent Diabetes mellitus Sibling Depression Anxiety Social History Social History Years smoked: 4 Smoking status: Current every day smoker Tobacco type: e-cigarettes/vaping Additional smoking assessment comments: Patient reports previous short term cigarette use. Alcohol intake: never Alcohol use details: 1-4/wk Substance use: never Substance use type: does not use Do You Feel Safe in your Home?: No Lack of Transportation: No Lack of Food: Never True Current Housing: I Have Housing Concerned About Future Housing: No Difficulty Paying Gas/Electric Bills: No Difficulty Paying for Meds: No Currently Unemployed: No Education: Decline to Answer Difficulty w/ Childcare or Family Care: No Spiritual care concerns: No Agree to blood products: Yes Meds Home Medications and Allergies Home Medications ?Medication ?Instructions ?Recorded ?Confirmed ?Type blood-glucose sensor ([email or web address] G7 #9 ea 10/04/24 11/28/24 Rx Sensor device) dapagliflozin propanediol 10 mg 10 mg PO DAILY 10/04/24 11/28/24 History tablet (Farxiga) dulaglutide 1.5 mg/0.5 mL 1.5 mg (0.5 mL) subcut WEEKLY #6 mL 10/04/24 11/28/24 Rx subcutaneous pen injector (Trulicity) lurasidone 120 mg tablet (Latuda) 120 mg PO DAILY 10/04/24 11/28/24 History metformin 750 mg tablet,extended 750 mg PO DAILY #180 tabs 10/04/24 11/28/24 Rx release 24 hr venlafaxine 150 mg 150 mg PO DAILY 10/04/24 11/28/24 History capsule,extended release 24 hr (Effexor XR) insulin glargine 100 unit/mL (3 40 unit (0.4 mL) subcut QPM #36 mL 10/20/24 11/28/24 Rx mL) subcutaneous pen (Lantus Solostar U-100 Insulin) pen needle, diabetic 32 gauge x #400 ea 10/20/24 11/28/24 Rx 5/32 (Eileen 2nd Gen Pen Needle) insulin aspart U-100 100 unit/mL 8 unit subcut TIDWMEAL 11/28/24 11/28/24 History (3 mL) subcutaneous pen (Novolog FlexPen U-100 Insulin aspart) norethindrone 1.5 mg-ethinyl 1 tablet PO DAILY 11/29/24 11/29/24 History estradiol 30 mcg(21)/iron 75 mg(7) tablet (Edwige Fe 1.5/30 (28)) Allergies Allergy/AdvReac Type Severity Reaction Status Date / Time risperidone (From Risperdal) Allergy Mild galactorrhe Verified 10/20/24 11:32 a Vital Signs Vital Signs - 24 hr 11/29/24 12:00 11/29/24 12:00 11/29/24 12:00 Temperature Pulse Rate 102 H 102 H Respiratory Rate 18 Blood Pressure 119/67 Pulse Oximetry 99 Oxygen Delivery Room Air 11/29/24 14:00 11/29/24 16:00 11/29/24 16:00 Temperature Pulse Rate 98 98 98 Respiratory Rate 17 Blood Pressure 121/73 Pulse Oximetry 98 Oxygen Delivery 11/29/24 20:00 11/30/24 00:00 11/30/24 03:54 Temperature 98.9 F 98.9 F 97.8 F Pulse Rate 93 101 H 84 Respiratory Rate 16 16 16 Blood Pressure 108/63 96/53 L 93/58 L Pulse Oximetry 98 98 98 Oxygen Delivery 11/30/24 08:18 Temperature 98.2 F Pulse Rate 90 Respiratory Rate 16 Blood Pressure 109/61 Pulse Oximetry 97 Oxygen Delivery Exam Psych: Appearance: grossly normal Mental Status: mental status grossly normal Speech and movement: Normal speech and movement present Affect: Sad affect present Attitude: cooperative Thought process: Normal thought process present Thought content: Yes Normal thought content present Insight: Fair insight present (Psych) Judgement: Fair judgement present (Psych) Results Labs 11/29/24 03:57 11/30/24 03:17 Labs: BMP 11/30/24 03:17 Sodium 138 Potassium 3.5 Chloride 107 Carbon Dioxide 21 L BUN 9 Creatinine 0.66 L Glucose 113 H Calcium 8.5
--- NOTE | 2024-11-30 11:40 | P.PNIM_ITS ---
Progress Note: A&P Assessment and Plan (1) Overdose: Code(s): T50.901A - Poisoning by unspecified drugs, medicaments and biological substances, accidental (unintentional), initial encounter Status: Acute Assessment and Plan: Patient overdosed on her boyfriends Wellbutrin, buspirone and citalopram that appears to be associated with an argument. Poison control called and appreciate their recommendations. Patient was monitored over last 2 days and clinically has improved with no further symptoms. Poison Control has discharged the patient She had a seizure on 11/28 related to the WB but none since then. Urine preg test negative. UDS positive for cannabinoids. Patient was monitored for seizures, serotonin syndrome and torsade Suicide precautions. Seizure precautions. Telemetry monitoring. Psychiatry consult pending Poison control signed off and she is clear for transfer discharge depending on Psychiatry recommendations (2) Schizoaffective disorder: Qualifiers: Schizoaffective disorder type: unspecified Qualified Code(s): F25.9 - Schizoaffective disorder, unspecified Code(s): F25.9 - Schizoaffective disorder, unspecified Status: Acute Assessment and Plan: Patient has schizoaffective disorder and is on Latuda and Effexor. I am not sure patient is taking the medication regularly as she keeps on changing her history There medications were held. Continue to hold for now. Psychiatry consult pending for for medication recommendations (3) Type 2 diabetes mellitus without complications: Code(s): E11.9 - Type 2 diabetes mellitus without complications Status: Acute Assessment and Plan: The patient's blood glucose are in controlled range in 100s. She has not received any Lantus for last 2 nights. Despite that Glucose remains well controlled despite not being on Lantus. When I question patient directly she admitted that she has not been taking her Lantus and takes it not more than once a week because it dropped her blood sugars. Continue AccuCheks covering with sliding scale. Hypoglycemia protocol available as needed. Continue to monitor. She is on diabetic diet I will cut down Lantus to 10 units at night. She will continue with the sliding scale (4) Vomiting: Code(s): R11.10 - Vomiting, unspecified Status: Acute Assessment and Plan: Related to above. Resolved Monitor (5) Mobitz type 2 second degree atrioventricular block: Code(s): I44.1 - Atrioventricular block, second degree Status: Acute Assessment and Plan: Preliminary reading by provide felt patient had 2nd degree AVB. EKG reviewed and showing sinus rhythm but no AVB Patient does not have any documented events of AVB Plan DVT Prophylaxis - SCDs Code status - full Subjective Date/time seen: 11/30/24 Overnight events reviewed. Afebrile. On room air. Other vitals acceptable Patient states she feels good and denies any complaints. She would like to be discharged. Patient denies fever, chest pain, shortness of breath, cough, nausea vomiting, abdominal pain,, diarrhea, headache or constipation. All other systems were reviewed and were negative Patient told me that she has been struggling with depression for many years since she was a child. She lives with her boyfriend who also has depression PTSD and anxiety and is on multiple medications which are in 80s me assessable cabin in her apartment. They live together. She does not work. 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 She states she has tried to commit suicide in the past that was 3 years ago but states that this time she only took pills to help her sleep. Although she admits that she does not know what dose pills or for and how many pills she took. She states she realized the mistake and called 911. She has a pill bottle of lurasidone tone which was filled 1 week ago. She states she does not have any psychiatry provider at this time and is going to set up care once discharged with [facility]. She claims to take 40 units of Lantus every night and sliding scale with meals Patient was tearful during interview Interval history: 24yo female with schizoaffective disorder and hx of suicide attempts who presents the hospital after an intentional overdose. Review of Systems Review of Systems: All systems reviewed & are unremarkable except as noted in HPI and below (HPI) Exam Narrative: General: Pt is alert awake and in NAD Lungs/Chest: Trachea central Clear BS B/L, No crackles or wheezing. Cardiac: RRR. Normal S1 S2. No murmurs Circulation: Pedal pulses are intact and symmetrical. Abdomen: Normal bowel sounds.. Soft. NT. ND. Extremities: No clubbing, cyanosis or edema. Warm : Bar in place Neurologic: Follows commands. Moves all 4 extremities PERRL Skin: No Rash Psych: Normal speech and affect but patient was tearful during interview Objective Data Vital Signs Vital Signs: Vital Signs - 24 hr 11/29/24 12:00 11/29/24 12:00 11/29/24 12:00 Temperature Pulse Rate 102 H 102 H Respiratory Rate 18 Blood Pressure 119/67 Pulse Oximetry 99 Oxygen Delivery Room Air 11/29/24 14:00 11/29/24 16:00 11/29/24 16:00 Temperature Pulse Rate 98 98 98 Respiratory Rate 17 Blood Pressure 121/73 Pulse Oximetry 98 Oxygen Delivery 11/29/24 20:00 11/30/24 00:00 11/30/24 03:54 Temperature 37.2 C 37.2 C 36.6 C Pulse Rate 93 101 H 84 Respiratory Rate 16 16 16 Blood Pressure 108/63 96/53 L 93/58 L Pulse Oximetry 98 98 98 Oxygen Delivery 11/30/24 08:18 Temperature 36.8 C Pulse Rate 90 Respiratory Rate 16 Blood Pressure 109/61 Pulse Oximetry 97 Oxygen Delivery Intake/Output Intake/Output: Intake & Output 11/27/24 11/28/24 11/29/24 11/30/24 23:59 23:59 23:59 23:59 Intake Total 1928.3 290 Balance 1928.3 290 Meds/Results Medications: Active Medications Generic Name Dose Route Start Last Admin Trade Name Freq PRN Reason Stop Dose Admin Acetaminophen 650 mg 11/28/24 18:12 Acetaminophen 325 Mg Tablet PO Q4H PRN Mild Pain (1-3) or Fever Dextrose 12.5 gm 11/28/24 18:52 Dextrose 50% 25 Gm/50 Ml Syringe IV PUSH PRN PRN Hypoglycemia Protocol Diazepam 5 mg 11/28/24 21:48 11/28/24 23:26 Diazepam Inj (*Crx) 10 Mg/2 Ml Syringe IV PUSH 5 mg Q6HR PRN Administration Seizure Glucagon 1 mg 11/28/24 18:52 Glucagon For Inj 1 Mg Vial IM PRN PRN Hypoglycemia Protocol Glucose 15 gm 11/28/24 18:52 Glucose Oral Gel 15 Gm Of Glucse In 37.5 Gm Tube PO PRN PRN Hypoglycemia Protocol Sodium Chloride 1,000 mls @ 100 mls/hr 11/28/24 18:55 11/30/24 08:00 Normal Saline Iv IV CONT Not Given .Q10H LEE Dextrose 1,000 mls @ 100 mls/hr 11/28/24 18:52 Dextrose 5% 1,000 Ml IVPB PRN PRN Hypoglycemia Protocol Insulin Aspart 4 - 8 units 11/29/24 08:00 11/30/24 07:58 Insulin Aspart (*Bkc) 100 Units/Ml SUB-Q Not Given TIDWM [facility] Protocol Insulin Glargine 40 units 11/28/24 18:55 11/28/24 22:44 Insulin Glargine (*Bkc) 100 Units/Ml SUB-Q Not Given On Hold: 11/28/24 22:40 QPM [facility] Non-Formulary ( 1 each 12/01/24 09:00 Norethindrone PO 12/31/24 08:59 Acetate-Ethinyl DAILY [facility] Estradiol/Ferrous Fumarate 1.5 Mg-30 . ..) Trimethobenzamide HCl 200 mg 11/28/24 21:01 11/28/24 21:30 Trimethobenzamide Hcl 200 Mg/2 Ml Vial IM 200 mg Q6H PRN Administration Nausea And Vomiting Labs Labs: Laboratory Results - last 24 hr 11/29/24 11/29/24 11/29/24 12:01 16:22 23:16 Sodium Potassium Chloride Carbon Dioxide Anion Gap BUN Creatinine Estim Creat Clear Calc Estimated GFR Glucose POC Capillary Glucose 112 H 104 123 H Calcium 11/30/24 11/30/24 11/30/24 03:17 07:28 11:20 Sodium 138 Potassium 3.5 Chloride 107 Carbon Dioxide 21 L Anion Gap 10 BUN 9 Creatinine 0.66 L Estim Creat Clear Calc Not Reportable Estimated GFR > 60 Glucose 113 H POC Capillary Glucose 110 H 138 H Calcium 8.5 Quality VTE Prophylaxis VTE prophylaxis: mechanical ordered
--- NOTE | 2024-11-30 12:58 | ECG_ITS ---
Test Date: 2024-11-30 13:06:21 Measurements Intervals Altha Rate: 93 P: 39 IN: 139 QRS: 44 QRSD: 96 T: 46 QT: 346 QTc: 430 Interpretive Statements SINUS RHYTHM NORMAL ECG Compared to ECG 11/28/2024 22:15:05 Sinus tachycardia no longer present Electronically Signed On 11-30-2024 15:38:36 CDT by Anatoliy Hill M.D.
--- NOTE | 2024-11-30 13:03 | PM.DS ---
DS: Admitting Diagnosis Discharge Date 11/30/2024 Admitting Diagnosis Suicide attempt by multiple drug overdose DS: Discharge Diagnosis Discharge Diagnosis (1) Overdose: Code(s): T50.901A - Poisoning by unspecified drugs, medicaments and biological substances, accidental (unintentional), initial encounter Status: Acute Assessment and Plan: Patient overdosed on her boyfriends Wellbutrin, buspirone and citalopram that appears to be associated with an argument. Poison control called and appreciate their recommendations. Patient was monitored over last 2 days and clinically improved with no further symptoms. Poison Control discharged the patient She had a seizure on 11/28 related to the WB but none since then. Urine preg test negative. UDS positive for cannabinoids. Patient was monitored for seizures, serotonin syndrome and torsades. EKG prior to discharge showed normal QTC Suicide precautions were done in the ICU along with Telemetry monitoring. Psychiatry evaluated the patient Poison control signed off and she is clear for transfer discharge depending on Psychiatry recommendations Patient is being now discharged after psychiatry evaluation (2) Schizoaffective disorder: Qualifiers: Schizoaffective disorder type: unspecified Qualified Code(s): F25.9 - Schizoaffective disorder, unspecified Code(s): F25.9 - Schizoaffective disorder, unspecified Status: Acute Assessment and Plan: Patient has schizoaffective disorder and is on Latuda and Effexor. Patient likely not compliant with the medications There medications were held. Continue to hold for now. Patient was evaluated by psychiatry and following recommendations were given -No imminent risk to hold patient involuntary for inpatient psychiatric admission, may discharge once medically cleared from psychiatric standpoint. -Decrease lurasidone to 40mg daily, may resume at discharge once medically cleared. Continue to hold venlafaxine until follow up with outpatient psychiatric provider. -Follow up with outpatient psych provider and therapist ELROY following discharge. Educated she may utilize walk in clinic at [facility] in the [facility] as needed. -Recommend ECG prior to D/C to monitor qtc, last qtc 11/28 460. I have recommended patient to discontinue venlafaxine and decrease the acetone does until she follows up with Psychiatry as an outpatient. (3) Type 2 diabetes mellitus without complications: Code(s): E11.9 - Type 2 diabetes mellitus without complications Status: Acute Assessment and Plan: The patient's blood glucose are in controlled range in 100s. She did not receive any any Lantus for last 2 nights. Despite that Glucose remains well controlled despite not being on Lantus. When I question patient directly she admitted that she has not been taking her Lantus and takes it not more than once a week because it dropped her blood sugars. She will continue metformin for C and I have decreased her Lantus to 10 units at bedtime at this time until she follows up with her primary care physician. She does have Dexcom continuous glucose monitoring on her (4) Vomiting: Code(s): R11.10 - Vomiting, unspecified Status: Acute Assessment and Plan: Related to above. Resolved in the hospital (5) Mobitz type 2 second degree atrioventricular block: Code(s): I44.1 - Atrioventricular block, second degree Status: Acute Assessment and Plan: Preliminary reading by provide felt patient had 2nd degree AVB. EKG reviewed and showing sinus rhythm but no AVB Patient does not have any documented events of AVB EKG done prior to discharge showed normal sinus rhythm with normal QRS and QTC DS: Summary Hospital Course Hospital Course: See above Time spent discussing smoking cessation with patient: more than 10 minutes Status at Discharge Functional status at discharge: independent ambulation Overall status at discharge: patient is back to baseline Time Spent with Patient Time attestation: Total time spent providing and/or coordinating discharge services: Exam Narrative: General: Pt is alert awake and in NAD Lungs/Chest: Trachea central Clear BS B/L, No crackles or wheezing. Cardiac: RRR. Normal S1 S2. No murmurs Circulation: Pedal pulses are intact and symmetrical. Abdomen: Normal bowel sounds.. Soft. NT. ND. Extremities: No clubbing, cyanosis or edema. Warm : Bar in place Neurologic: Follows commands. Moves all 4 extremities PERRL Skin: No Rash Psych: Normal speech and affect but patient was tearful during interview DS: Data Data Completed and Pending Labs on day of discharge: Labs from last 24 hours 11/30/24 11/30/24 11/30/24 11:20 07:28 03:17 Sodium 138 Potassium 3.5 Chloride 107 Carbon Dioxide 21 L Anion Gap 10 BUN 9 Creatinine 0.66 L Estim Creat Clear Calc Not Reportable Estimated GFR > 60 Glucose 113 H POC Capillary Glucose 138 H 110 H Calcium 8.5 11/29/24 11/29/24 23:16 16:22 Sodium Potassium Chloride Carbon Dioxide Anion Gap BUN Creatinine Estim Creat Clear Calc Estimated GFR Glucose POC Capillary Glucose 123 H 104 Calcium Discharge Plan Discharge Attending physician on discharge: Epi Vo Consulting providers: Henri Mcdaniel Discharging Clinician: Epi Vo Anticipated Discharge Date/Time: 11/30/24 13:04 Patient Disposition: Home Activity: unlimited Diet: as tolerated and diabetic Patient Instructions: Antibiotic Form, How to Stop Smoking (ED), Electronic Cigarettes and Your Health (ED) Patient Language: Urdu Stand Alone Forms: General Discharge Information Follow-up/Referrals: Henri Mcdaniel, [employer]MER [Advanced Practice Nurse, Psychiatry] Discharge Medications: New lurasidone 120 mg Tablet 40 mg PO DAILY 30 Days Qty: 10 0RF insulin glargine [Lantus U-100 Insulin] 100 unit/mL Solution 10 unit subcut QPM Qty: 10 0RF Continued dapagliflozin propanediol [Farxiga] 10 mg tablet 10 mg PO DAILY (DME) pen needle, diabetic [Eileen 2nd Gen Pen Needle] 32 gauge x 5/32 needle See Rx Instructions .Route Qty: 400 2RF Rx Instructions: Use to administer insulin 4 times a day insulin aspart U-100 [Novolog FlexPen U-100 Insulin] 100 unit/mL (3 mL) insulin pen 8 unit subcut TIDWMEAL MDD 33 Rx Instructions: 5 units premeal + SSI 150-200: 1 units 201-250: 2 units 251-300: 3 units 301-350: 4 units 351-400: 5 units >401: 6 units norethindrone-e.estradiol-iron [Edwige Fe 1.5/30 (28)] 1.5 mg-30 mcg (21)/75 mg (7) tablet 1 tablet PO DAILY Patient Comments: control non form metformin 750 mg tablet extended release 24 hr 750 mg PO DAILY Qty: 180 1RF (DME) Dexcom G7 Sensor Device See Rx Instructions .ROUTE .MEDSUPPLY Qty: 9 3RF Rx Instructions: Use to monitor glcuose Discontinued venlafaxine [Effexor XR] 150 mg capsule,extended release 24hr 150 mg PO DAILY lurasidone [Latuda] 120 mg tablet 120 mg PO DAILY Rx Instructions: must administer with food (at least 350 calories) insulin glargine [Lantus Solostar U-100 Insulin] 100 unit/mL (3 mL) insulin pen 40 unit subcut QPM Qty: 36 1RF Trulicity 1.5 mg/0.5 mL pen injector 1.5 mg subcut WEEKLY Qty: 6 1RF Date of admission: 11/29/24 09:47 Primary Care Provider: PHYSICIAN NOT ON STAFF,NONSTAFF Admitting Provider: Gorge Craven Attending physician on admission: Gorge Craven Condition: Serious Quality VTE Prophylaxis VTE prophylaxis: mechanical ordered Hospitalist MIPS Heart Failure (Exclusion) Patient has history of Heart Transplant or Left Ventricular Assistive Device?: No IF YES, STOP HERE Heart Failure (Qualifier) Patient has current or prior documentation of LVEF less than or equal to 40%, or mod/servere depressed LVSF?: No IF NO, STOP HERE
--- NOTE | 2024-11-30 13:54 | PC.NURSE ---
discharge instructions given to pt -acknowledge understanding . home medications , phone and belongings returned to pt
== END 2024-11-30 14:03 | disposition home or self-care (01) | DRG 817 ==
LOC: ANHED 14:45 → ANHICU 16:18
PROVIDERS: Nurse Practitioner Gerontology; Admitting Provider Internal Medicine; Emergency Provider Emergency Medicine; Visit Provider Internal Medicine
DX: T43.292A Poisoning by other antidepressants, intentional self-harm, initial encounter (principal); T43.592A Poisoning by other antipsychotics and neuroleptics, intentional self-harm, initial encounter; T43.222A Poisoning by selective serotonin reuptake inhibitors, intentional self-harm, initial encounter; I44.1 Atrioventricular block, second degree; F25.9 Schizoaffective disorder, unspecified; F31.81 Bipolar II disorder; F60.3 Borderline personality disorder; R56.9 Unspecified convulsions; E11.9 Type 2 diabetes mellitus without complications; F10.90 Alcohol use, unspecified, uncomplicated; F12.90 Cannabis use, unspecified, uncomplicated; F17.290 Nicotine dependence, other tobacco product, uncomplicated; Z20.822 Contact with and (suspected) exposure to COVID-19; Z91.148 Patient's other noncompliance with medication regimen for other reason; Z79.4 Long term (current) use of insulin; Z91.51 Personal history of suicidal behavior; Z86.59 Personal history of other mental and behavioral disorders
CPT/HCPCS: 36415; 80048; 80053; 80143; 80179; 80307; 81003; 81025; 82077; 82948; 83735; 84100; 84443; 85025; 85610; 85730; 87635; 93005; 96372; 96374; 96375; 99285; A9270; G0379; J1200; J1953; J3250; J3360; J7030

== ENCOUNTER 2025-03-07 13:59 | Outpatient (CLI) | payer OTHER, SELFPAY ==
[2025-03-10 16:08] LABS: GAD-65 Antibody <5.0 U/mL (0.0-5.0)
== END 2025-03-07 14:00 | disposition home or self-care (01) ==
PROVIDERS: Visit Provider Nurse Practitioner Family
DX: E11.65 Type 2 diabetes mellitus with hyperglycemia (principal)
CPT/HCPCS: 86341